=== PATIENT | female | born 1990 | race African-American/Black ===

== ENCOUNTER 2017-03-28 06:33 | Emergency (ER) | payer SELFPAY ==
[~2017-03-28] VITALS: Ht 162.6 cm; Wt 68.5 kg
[2017-03-28 06:38] VITALS: BP 116/60; PULSE 78; RESP 18; TEMP 98.1; O2SAT 99
[2017-03-28] MEDS ORDERED: ALBUAER3 INH (06:42)
[2017-03-28] MEDS ORDERED: MEDR4PAK PO (06:54)
[2017-03-28] MEDS ORDERED: ZITHTAB PO (06:54)
--- NOTE | 2017-03-28 06:55 | PD ---
HPI Chief Complaint: Cold / Flu Symptoms Time Seen by Provider: 06:48 Travel History International Travel<30 days: No Contact w/Intl Traveler<30days: No Traveled to known affect area: No History of Present Illness HPI 26-year-old female presents to the emergency department by EMS transport from home for complaint of progressively worsening shortness of breath and cough productive of thick yellow-green sputum. Symptoms began mildly approximately 2 weeks ago grossly worsened over the past few days. Patient is not aware of fever this states cough has become more productive of thick green sputum. Patient's had some mild sore throat. Patient does have asthma. Patient has used her provider inhaler but did not use it this morning when she became symptomatic and she thought it might be causing her problems. Last use of her inhaler was last evening. Patient denies . Patient is not sexually active. Last menses was one week ago. Patient denies tobacco use. Patient states influenza vaccine is current. PFSH Past Medical History Narrative Medical asthma; no tobacco use; nursing notes reviewed Asthma: Yes ?: Not Past Surgical History Surgical History: No Previous Surgery Social History Alcohol Use: No Tobacco Use: No Substance Use: No Allergies-Medications (Allergen,Severity, Reaction): Coded Allergies: No Known Allergies (Unverified , 03/28/17) Reported Meds & Prescriptions Reported Meds & Active Scripts Active Zithromax Z-Pietro (Azithromycin) 250 Mg Dspk 250 Mg PO DIRECTED 500 MG (2 tabs) day 1, then 1 tab days 2-5. Medrol Dosepak (Methylprednisolone) 4 Mg Dspk 4 Mg PO DIRECTED Per Pharmacist direction Reported Proair Hfa 8.5 GM Inh (Albuterol Sulfate) 90 Mcg/Act Aer 1 Puff INH Q4H PRN 108 mcg/actuation Review of Systems Except as stated in HPI: all other systems reviewed are Neg General / Constitutional: No: Chills HENT: Positive: Sore Throat, Congestion Cardiovascular: No: Chest Pain or Discomfort Respiratory: Positive: Cough, Shortness of Breath, Wheezing, No: Orthopnea, Hemoptysis, Pleuritic Pain Gastrointestinal: No: Vomiting, Abdominal Pain Genitourinary: No: Dysuria, Flank Pain Musculoskeletal: No: Myalgias, Arthralgias Skin: No Rash Neurologic: No: Weakness Psychiatric: No: Anxiety Hematologic/Lymphatic: No: Lymph Node Enlargement Physical Exam Narrative GENERAL: Well-developed well-nourished pleasant female in no acute distress no respiratory distress SKIN: Warm and dry. HEAD: Normocephalic. EYES: No scleral icterus. No injection or drainage. ENT: Mucous membranes moist airway is patent no posterior pharyngeal edema erythema or exudative change tympanic membranes no redness dullness or loss of landmarks NECK: Supple, trachea midline. No JVD or lymphadenopathy. CARDIOVASCULAR: Regular rate and rhythm without murmurs, gallops, or rubs. RESPIRATORY: Breath sounds equal bilaterally expiratory wheezes bilaterally. No accessory muscle use. GASTROINTESTINAL: Abdomen soft, non-tender, nondistended. MUSCULOSKELETAL: No cyanosis, or edema. BACK: Nontender without obvious deformity. No CVA tenderness. Data Data Last Documented VS Vital Signs Date Time Temp Pulse Resp B/P (MAP) Pulse Ox O2 Delivery O2 Flow Rate FiO2 03/28/17 06:38 98.1 78 18 116/60 (78) 99 Orders Orders Chest, Single Ap (03/28/17 ) Albuterol-Ipratropium Neb (Duoneb Neb) (03/28/17 07:00) MDM Medical Decision Making Medical Screen Exam Complete: Yes Emergency Medical Condition: Yes Medical Record Reviewed: Yes Differential Diagnosis Viral syndrome allergic rhinosinusitis bronchitis pneumonia Narrative Course Patient with wheezing to auscultation updraft 1 administered and chest x-ray obtained Patient presents with cough wheezing productive of yellow-green sputum concerning for acute bronchitis; no evidence for pneumonia; symptoms improved after updrafts; patient has poor inhaler is encouraged to use this as needed for wheezing and shortness of breath will be started on a Medrol Dosepak and azithromycin. Patient is encouraged to follow-up with her primary care provider. Diagnosis Primary Impression: Bronchitis Referrals: [facility] call for appointment Primary Care Physician call for appointment Patient Instructions: General Instructions Additional Instructions: Increase fluid hydration Use per air inhaler as needed for wheezing or shortness of breath Complete course of steroid Complete course of antibiotic Return to the emergency department for any concerns or change in condition Monitor temperature for fever take acetaminophen/Tylenol as needed for fever 100.4F or greater Return to the emergency department for a concerns or change in condition Med/Other Pt SpecificInfo: Prescription(s) given Scripts Azithromycin (Zithromax Z-Pietro) 250 Mg Dspk 250 MG PO DIRECTED for Infection, #1 DSPK 0 Refills 500 MG (2 tabs) day 1, then 1 tab days 2-5. Prov: Gosia Elias MD 03/28/17 Methylprednisolone Dosepak (Medrol Dosepak) 4 Mg Dspk 4 MG PO DIRECTED, #1 DSPK 0 Refills Per Pharmacist direction Prov: Gosia Elias MD 03/28/17 Disposition: 01 DISCHARGE HOME Condition: Stable Gosia Elias MD Mar 28, 2017 06:55
[2017-03-28] MEDS ORDERED: RESP: ALBUTEROL 2.5 MG/IPRATROPIUM 0.5 MG NEB (SCH) NEB ONE (07:00)
--- NOTE | 2017-03-28 07:58 | RADRPT ---
EXAM DATE/TIME: 03/28/2017 07:18 [place] COMPARISON: No previous studies available for comparison. INDICATIONS : Cold symptoms, cough, congestion,short of breath. MEDICAL HISTORY : Asthma. SURGICAL HISTORY : None. ENCOUNTER: Initial ACUITY: 2 weeks PAIN SCORE: 0/10 LOCATION: chest FINDINGS: A single view of the chest demonstrates the lungs to be symmetrically aerated without evidence of mas s, infiltrate or effusion. The cardiomediastinal contours are unremarkable. Osseous structures are intact. CONCLUSION: Normal examination. Gordon Britt MD on March 28, 2017 at 7:56 Board Certified Radiologist. This report was verified electronically.
== END 2017-03-28 08:09 | disposition home or self-care (01) ==
LOC: PHEFT 06:33
DX: J40 Bronchitis, not specified as acute or chronic (principal)
CPT/HCPCS: 71010; 94664; 99284